=== PATIENT | female | born 2000 | race Caucasian/White ===

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

== ENCOUNTER → 2018-02-08 11:32 | Outpatient (CLI) | payer BC, SELFPAY ==
[2018-02-08 12:38] LABS: Hematocrit 33.6 % (37-47); Hemoglobin 11.4 g/dl (12.0-15.0); Mean Corp Hgb Conc 33.9 g/gl (32-36); Mean Corpuscular Hgb 31.1 pg (27.0-32.0); Mean Corpuscular Volume 91.6 fL (81-99); Mean Platelet Vol. 10.6 fl (6.2-12.0); Platelet Count 244 K/mm3 (150-450); RBC Distribution Width CV 12.1 % (11.6-14.6); RBC Distribution Width SD 39.2 fl (35.1-43.9); Red Blood Count 3.67 M/mm3 (4.2-5.4); White Blood Count 13.2 K/mm3 (4.4-11.0)
[2018-02-08 12:40] LABS: Scan Indicated on CBC? Y/N NO
[2018-02-08 12:46] LABS: Glucose Challenge Gest 1H 50g 82 mg/dL (70-140)
== END ==
PROVIDERS: Visit Provider Obstetrics & Gynecology
DX: Z34.83 Encounter for supervision of other normal pregnancy, third trimester (principal)
CPT/HCPCS: 82950; 85027

== ENCOUNTER 2018-03-20 16:25 | Outpatient (CLI) | payer BC, MEDICAID, SELFPAY ==
[2018-03-20 16:46] VITALS: BMI 29.7
[2018-03-20 17:26] LABS: ROM Internal Control Test YES-OK TO RESULT pt. (Internal QC); ROM Patient Test Negative (Negative)
[2018-03-20 17:55] LABS: Color, Urine Yellow (Yellow); Glucose, Dipstick Normal (Normal); Ketone-Dipstick Negative (Negative); Leukocyte Esterase-Dipstick 25 /ul (Negative); Nitrite-Dipstick Negative (Negative); Occult Blood-Urine Negative /ul (Negative); Protein-Dipstick 15 mg/dl (Negative); Red Blood Cells-Urine 0 SEEN /hpf (0-5); Squamous Epithelial Cells - UA 0 SEEN /hpf (5-10); Urine Bilirubin Dipstick Negative (Negative); Urine Clarity Clear (Clear); Urine Urobilinogen Normal (Normal); Urine pH 6.5 (5.0 - 8.0)
[2018-03-20 18:04] LABS: Bacteria 2+ /hpf (None Seen); Mucous, Urine RARE /hpf (<or=2+); White Blood Cells 0-5 SEEN /hpf (0-5)
--- NOTE | 2018-03-21 08:11 | OB.TRI.NOTE ---
History of Present Illness Date of Service: 03/20/18 Was patient seen by the physician?: No Reason For Visit: RULE OUT LABOR Date of Service: 03/20/18 Final LORRI: 04/27/18 Final LORRI Source: US <20 weeks Gestational age: 34 Weeks and 4 Days History of Present Illness: 17 yo AB1 female at 34 + wk presents with ? SROM. States N/V after car ride (normally has motion sickness) . States leaking fluid for a few days prior to this inc in fluid noted with N/V. No c/o UCs. No longer nauseated . Allergies No Known Allergies Allergy (Verified 11/18/17 17:04) Physical Exam Cervix Dilation (cm): 0 Effacement (%): 0 NST - FHR Rate Baby A Baseline: 120-130 avg variability Accels noted Variability:: Moderate Accelerations:: 15 x 15 Decelerations:: None NST Reactive:: Yes, Appropriate for gestational age FHR Category:: Category I Uterine Activity:: Uterine irritability with UCS q 2-4+ mins (not felt by patient as painful) Impression/Plan 17 yo [id number] female at 34 + wk EGA inc vaginal dischg FALSE LABOR SROM NEGATIVE NST reative Uterine irritability 2/2 relative dehydration. Home. RTO as scheduled for exam, PNV. UA, C and S sent.
--- NOTE | 2018-03-21 08:18 | OB.TRI.HP_ITS ---
History of Present Illness Date of Service: 03/20/18 Was patient seen by the physician?: No Reason For Visit: RULE OUT LABOR Date of Service: 03/20/18 Final LORRI: 04/27/18 Final LORRI Source: US <20 weeks Gestational age: 34 Weeks and 4 Days History of Present Illness: 17 yo AB1 female at 34 + wk presents with ? SROM. States N/V after car ride (normally has motion sickness) . States leaking fluid for a few days prior to this inc in fluid noted with N/V. No c/o UCs. No longer nauseated . Allergies No Known Allergies Allergy (Verified 11/18/17 17:04) Physical Exam Cervix Dilation (cm): 0 Effacement (%): 0 NST - FHR Rate Baby A Baseline: 120-130 avg variability Accels noted Variability:: Moderate Accelerations:: 15 x 15 Decelerations:: None NST Reactive:: Yes, Appropriate for gestational age FHR Category:: Category I Uterine Activity:: Uterine irritability with UCS q 2-4+ mins (not felt by patient as painful) Impression/Plan 17 yo [id number] female at 34 + wk EGA inc vaginal dischg FALSE LABOR SROM NEGATIVE NST reative Uterine irritability 2/2 relative dehydration. Home. RTO as scheduled for exam, PNV. UA, C and S sent.
== END 2018-03-20 18:40 | disposition home or self-care (01) ==
LOC: WPOUT 16:46 → WP 16:46
PROVIDERS: Visit Provider Obstetrics & Gynecology
DX: O47.03 False labor before 37 completed weeks of gestation, third trimester (principal); Z3A.34 34 weeks gestation of pregnancy; E86.0 Dehydration
CPT/HCPCS: 59025; 59050; 81001; 84112; 99218; G0378

== ENCOUNTER → 2018-04-04 15:30 | Outpatient (CLI) | payer BC, MEDICAID, SELFPAY ==
[2018-04-04 17:53] LABS: Group B Strep DNA By PCR POSITIVE (Negative); Probe Check PASS
== END ==
PROVIDERS: Visit Provider Obstetrics & Gynecology
DX: Z36.85 Encounter for antenatal screening for Streptococcus B (principal)
CPT/HCPCS: 87653

== ENCOUNTER 2018-04-28 13:44 | Inpatient (IN) | payer BC, MEDICAID, SELFPAY ==
[2018-04-28 13:52] VITALS: BMI 31.4
[2018-04-28 15:33] LABS: ROM Internal Control Test YES-OK TO RESULT pt. (Internal QC); ROM Patient Test Negative (Negative)
[2018-04-28] MEDS: Lactated Ringers 1,000 ML 50 ML IV ×2 (16:14→21:01)
[2018-04-28] MEDS: Oxytocin 30 units/NS 500 ml 30 UNITS/500 ML IV.SOLN IV (16:29)
[2018-04-28 16:31] LABS: Hematocrit 34.1 % (37-47); Hemoglobin 11.4 g/dl (12.0-15.0); Mean Corp Hgb Conc 33.4 g/gl (32-36); Mean Corpuscular Hgb 30.2 pg (27.0-32.0); Mean Corpuscular Volume 90.2 fL (81-99); Mean Platelet Vol. 10.7 fl (6.2-12.0); Platelet Count 220 K/mm3 (150-450); RBC Distribution Width CV 13.4 % (11.6-14.6); RBC Distribution Width SD 43.4 fl (35.1-43.9); Red Blood Count 3.78 M/mm3 (4.2-5.4); White Blood Count 13.1 K/mm3 (4.4-11.0)
[2018-04-28 16:34] LABS: Scan Indicated on CBC? Y/N NO
[2018-04-28 16:55] LABS: Color, Urine Yellow (Yellow); Glucose, Dipstick Normal (Normal); Ketone-Dipstick Negative (Negative); Leukocyte Esterase-Dipstick 25 /ul (Negative); Nitrite-Dipstick Negative (Negative); Occult Blood-Urine 250 /ul (Negative); Protein-Dipstick 30 mg/dl (Negative); Urine Bilirubin Dipstick Negative (Negative); Urine Clarity Sl. Cloudy (Clear); Urine Urobilinogen Normal (Normal)
[2018-04-28 17:16] LABS: Amphetamine Urine VISTA NEGATIVE (<1000 ng/mL); Barbiturate Urine VISTA NEGATIVE (< 200 ng/mL); Benzodiazepine Urine VISTA NEGATIVE (< 200 ng/mL); Cocaine Urine VISTA NEGATIVE (< 300 ng/mL); Ecstacy Urine VISTA NEGATIVE (< 500 ng/mL); Methadone Urine VISTA NEGATIVE (< 300 ng/mL); PCP Urine VISTA NEGATIVE (< 25 ng/mL); THC Urine VISTA NEGATIVE (< 50 ng/mL); Vista UDS pH Range 7
--- NOTE | 2018-04-28 20:30 | PCM.PN.BLA ---
Progress Note LABOR PROGRESS NOTE C/o painful contractions and requests epidural. Denies headache, vision changes. AVSS 134/ GEN - NAD, AAO x 3 FHR 135, moderate variability, + accelerations, no decelerations TOCO /-3-4/10 min SVE 3/80/-2 A/P: 17yo G1 @ 40 5/7wga with PROM, pitocin augmentation, Cat I FHR -Epidural per patient request -Continue pitocin as tolerated by mother and fetus -Maternal and statuses reassuring
[2018-04-28] MEDS: fentaNYL-bupivacaine (epidural) 100 ML BAG EPIDURAL (21:20)
[2018-04-29] MEDS: fentaNYL-bupivacaine (epidural) 100 ML BAG EPIDURAL (02:10)
[2018-04-29] MEDS: Lactated Ringers 1,000 ML 50 ML IV (08:06)
[2018-04-29] MEDS: Ondansetron 4 MG/2 ML Vial IV (08:06)
--- NOTE | 2018-04-29 08:33 | PN.OBGYN_ITS ---
Subjective: Comfortable with epidural. Objective: afeb VSS FHR tracing Cat 1. - Physical Exam General: Alert, Oriented x3, Cooperative, No apparent distress Abdomen: Non Tender, Gravid, Appropriate for Gestational Age Skin: No rashes Psych/Mental Status: Normal Affect Comment: FD 0 station Weight: 195 lb 1.745 oz Body Mass Index (BMI) 31.4 Intake and Output for Last 24 Hours 04/27/18 04/28/18 04/29/18 23:59 23:59 23:59 Intake Total 2108 / 2108 Output Total 1150 / 1150 Balance 958 / 958 Laboratory Tests Past 24 Hrs 04/28/18 04/28/18 04/28/18 14:55 16:00 16:00 WBC 13.1 H RBC 3.78 L Hgb 11.4 L Hct 34.1 L MCV 90.2 MCH 30.2 MCHC 33.4 RDW 13.4 RDW Differential 43.4 Plt Count 220 MPV 10.7 Urine Color Urine Clarity Urine pH Ur Specific [place] Urine Protein Urine Glucose (UA) Urine Ketones Urine Occult Blood Urine Nitrite Urine Bilirubin Urine Urobilinogen Ur Leukocyte Esterase Vag Amniotic Fld Detect Negative Urine Opiates Screen Urine Methadone Screen Ur Barbiturates Screen Ur Phencyclidine Scrn Ur Amphetamines Screen U Methamphetamin-MDMA U Benzodiazepines Scrn Urine Cocaine Screen U Cannabinoids Screen Ur Drug Screen Comment Blood Type A POSITIVE Antibody Screen NEGATIVE 04/28/18 04/28/18 16:30 16:30 WBC RBC Hgb Hct MCV MCH MCHC RDW RDW Differential Plt Count MPV Urine Color Yellow Urine Clarity Sl. Cloudy Urine pH 7.0 Ur Specific [place] 1.010 Urine Protein 30 H Urine Glucose (UA) Normal Urine Ketones Negative Urine Occult Blood 250 H Urine Nitrite Negative Urine Bilirubin Negative Urine Urobilinogen Normal Ur Leukocyte Esterase 25 H Vag Amniotic Fld Detect Urine Opiates Screen NEGATIVE Urine Methadone Screen NEGATIVE Ur Barbiturates Screen NEGATIVE Ur Phencyclidine Scrn NEGATIVE Ur Amphetamines Screen NEGATIVE U Methamphetamin-MDMA NEGATIVE U Benzodiazepines Scrn NEGATIVE Urine Cocaine Screen NEGATIVE U Cannabinoids Screen NEGATIVE Ur Drug Screen Comment Blood Type Antibody Screen Medical Necessity - Tobacco Use Smoking Status: Current every day smoker Assessment/Plan AROM performed with clear fluid noted.
[2018-04-29] MEDS: Oxytocin 30 units/NS 500 ml 30 UNITS/500 ML IV.SOLN 334 UNITS IV (09:51)
[2018-04-29] MEDS: Oxytocin 30 units/NS 500 ml 30 UNITS/500 ML IV.SOLN 167 UNITS IV (10:21)
[2018-04-29 16:05] VITALS: BP 126/76; PULSE 100; RESP 18; TEMP 36.7
[2018-04-29] MEDS: Ibuprofen 600 MG Tablet PO (16:09)
[2018-04-29] MEDS: Dibucaine 30 GM Tube 1 APPLIC TOPICAL (16:10)
--- NOTE | 2018-04-29 17:10 | DCINST_ITS ---
Discharge Diet: No Restrictions Discharge Activity: Return to Normal Activity, May Shower, May Take a Tub Bath May resume sexual activity in: 6 weeks Lifting Restrictions: 10-20 lb Call your doctor if you observe: Fever of 101 or Higher, Inability to urinate, Inability to have a bowel movement, Using more than one pad per hour, Shortness of breath, Chest pain, Calf discomfort, Uncontrolled pain, - - Severe headache Additional Instructions: If you experience any of the following, contact your healthcare provider. * Bleeding that soaks a pad every hour for 2 hours * Fever 100.4 or higher * Unrelieved incision or abdominal pain * Swelling, redness, discharge or bleeding from your incision or episiotomy site * Your incision begins to separate * Problems urinating (including inability to urinate or burning while urinating) . * Visual changes * Severe headache * Flu-like symptoms * Pain or redness in one of both of your breasts * Pain, warmth, tenderness or swelling in your legs, especially the calf area * Frequent nausea and vomiting * Symptoms of depression or anxiety If you experience any of the following, call 911 or go to the nearest Emergency Room. * Chest pain * Problems breathing * Seizure activity * Partial or complete paralysis of a body part, slurred speech, weakness or drooping of the face, or a sudden inability to walk or hold your balance Allergies/Adverse Reactions: Allergies No Known Allergies Allergy (Verified 11/18/17 17:04) Medications to take at Discharge Vits [Prenatabs FA] 1 tablet PO DAILY 03/20/18 Docusate Sodium [Colace] 100 mg PO BID PRN PRN #60 cap 04/29/18 Ibuprofen 600 mg PO TID PRN #30 tab 04/29/18 The following prescriptions were given: Docusate Sodium [Colace] 100 mg PO BID PRN PRN #60 cap PRN Reason: Constipation Ibuprofen 600 mg PO TID PRN #30 tab PRN Reason: Pain Please Follow Up With: Rosie Sheppard MD When: 6 weeks Primary Care Physician: Care Physician,No Primary [Primary Care Provider] - Test Results: Test results from this visit will be discussed in further detail at your follow- up appointment, if applicable.
--- NOTE | 2018-04-29 17:10 | PCM.OB.VAG ---
- Problem List (1) 40 weeks gestation of Status: Acute (2) (spontaneous vaginal delivery) Status: Acute Vaginal Delivery Maternal Presentation: Medically Indicated Induction Method of Induction: Pitocin Medical Reason for Induction: - - oligohydramnios Amniotic Membrane Rupture Type: Artificial Rupture of Membrane time: 71704/29/18 Amniotic Fluid Description: Clear Final LORRI: 04/27/18 Final LORRI Source: US <20 weeks Gestational age: 40 Weeks and 2 Days Date of Procedure: 04/29/18 Pre-Operative Diagnosis: 40 2/7wga, oligohydramnios, GBS positive Post-Operative Diagnosis: 40 2/7wga, oligohydramnios, GBS positive Surgery/ Procedure Performed: Spontaneous Vaginal Delivery Anesthesiologist: Prudence Mason Type of Anesthesia: Epidural Description of Procedure: Patient pushed to FD\+4 station on my arrival. She pushed to deliver a vigorous male infant in direct OA. The was placed on the maternal abdomen and further attended by nursery personnel. The cord was doubly clamped and cut after approximately 3 minutes of life. Cord gases were obtained. The placenta delivered spontaneously and appeared intact on inspection. A first degree vaginal laceration was repaired with 3-0 Vicryl Rapide. Sponge counts correct x 2. Presentation: Vertex Placental Delivery Description: Spontaneous Placenta Disposition: [facility] Cord Vessel Description: 3 Vessels Nuchal Cord Compression: Without compression Cord Gases drawn per routine: ABG, VBG Cord Entanglement: None Estimated Blood Loss: 350 A gender: Male (1 minute): 9 (5 minute): 10 Episiotomy Description: None Laceration: Midline, Vaginal Extension/lac, 1st degree Medications given after delivery: IV Pitocin Complications: None
[2018-04-29 19:40] VITALS: BP 123/62; PULSE 88; RESP 17; TEMP 36.5; O2SAT 98
[2018-04-29 23:35] VITALS: BP 128/73; PULSE 88; RESP 18; TEMP 36.6
[2018-04-30 03:40] VITALS: BP 129/77; PULSE 89; RESP 18; TEMP 36.4
[2018-04-30] MEDS: Ibuprofen 600 MG Tablet PO ×3 (04:05→17:15)
[2018-04-30 08:06] VITALS: BP 129/73; PULSE 80; RESP 20; TEMP 36.6
--- NOTE | 2018-04-30 08:50 | PCM.PN.OB ---
Patient Problems: Active and Suspected Problems 40 weeks gestation of (Acute) (spontaneous vaginal delivery) (Acute) Subjective: Doing well. Some vulavar soreness. Bleeding light. Breast feeding. Objective: Afeb VSS - Physical Exam Abdomen: Soft, Non Tender, Non-Distended, - - Fundus nontender Extremities: No edema Skin: No rashes Neurological: Neuro grossly intact Psych/Mental Status: Normal Affect Comment: Lochia appropriate Vital Signs Temp Pulse Resp BP Pulse Ox 97.8 F 80 20 H 129/73 H 98 04/30/18 08:06 04/30/18 08:06 04/30/18 08:06 04/30/18 08:06 04/29/18 19:40 Oxygen Delivery Method Room Air Weight: 195 lb 1.745 oz Body Mass Index (BMI) 31.4 Intake and Output for Last 24 Hours 04/28/18 04/29/18 04/30/18 23:59 23:59 23:59 Intake Total 2798 / 2798 Output Total 2550 / 2550 Balance 248 / 248 Medical Necessity - Tobacco Use Smoking Status: Current every day smoker Assessment/Plan All Active Problems 40 weeks gestation of (Acute) (spontaneous vaginal delivery) (Acute) Doing well on PP day#1. Continue routine PP care.
[2018-04-30] MEDS: Prenatal Vits Tablet 1 TABLET PO (09:47)
[2018-04-30 14:25] VITALS: BP 135/70; PULSE 94; RESP 22; TEMP 36.7
--- NOTE | 2018-04-30 20:18 | NURSING ---
1950-pt having some burning with voiding, enc to use maribell bottle and spray perineum while voiding. pt voiced that this does help.
[2018-05-01] MEDS: Ibuprofen 600 MG Tablet PO (00:59)
[2018-05-01 01:02] VITALS: BP 138/93; PULSE 77; RESP 16; TEMP 36.7
--- NOTE | 2018-05-01 07:41 | PCM.PN.OB ---
Patient Problems: Active and Suspected Problems 40 weeks gestation of (Acute) (spontaneous vaginal delivery) (Acute) Subjective: No specific complaints. Breast feeding. Bleeding light. Objective: Afeb VSS - Physical Exam General: Alert, Oriented x3, Cooperative, No apparent distress Lungs: Clear to auscultation, Normal air movement Cardiovascular: Regular rate, Regular Rhythm Abdomen: Soft, Non Tender, Non-Distended, - - Fundus nontender Extremities: No edema Skin: No rashes Neurological: Neuro grossly intact Psych/Mental Status: Normal Affect Comment: Lochia light Vital Signs Temp Pulse Resp BP Pulse Ox 98.1 F 77 16 138/93 H 98 05/01/18 01:02 05/01/18 01:02 05/01/18 01:02 05/01/18 01:02 04/29/18 19:40 Oxygen Delivery Method Room Air Weight: 195 lb 1.745 oz Body Mass Index (BMI) 31.4 Intake and Output for Last 24 Hours 04/29/18 04/30/18 05/01/18 23:59 23:59 23:59 Intake Total 2798 / 2798 Output Total 2550 / 2550 Balance 248 / 248 Medical Necessity - Tobacco Use Smoking Status: Current every day smoker Assessment/Plan All Active Problems 40 weeks gestation of (Acute) (spontaneous vaginal delivery) (Acute) Doing well on PP day#2. Cleared for discharge home today. Home going instructions and warnings given.
--- NOTE | 2018-05-01 07:43 | PCM.DC.SUM ---
Discharge Date and Diagnosis - Problem List Patient Problems: Active and Suspected Problems 40 weeks gestation of (Acute) (spontaneous vaginal delivery) (Acute) Date of Admission: 04/28/18 Date of Discharge: 05/01/18 - Primary Discharge Diagnosis Active and Suspected Problems 40 weeks gestation of (Acute) (spontaneous vaginal delivery) (Acute) Hospital Course and Treatment Operations: None Procedures: - - Summary of Care Provided: The patient is a 17 year old F [admitted in active labor. Progressed to FD then pushed to deliver a live without complication. Post course unremarkable. Discharged home on pp day#2.] Discharge Diet: No Restrictions Discharge Activity: Return to Normal Activity, May Shower, May Take a Tub Bath May resume sexual activity in: 6 weeks Call your doctor if you observe: Fever of 101 or Higher, Inability to urinate, Inability to have a bowel movement, Using more than one pad per hour, Shortness of breath, Chest pain, Calf discomfort, Uncontrolled pain, - - Severe headache Home Medications: Medications to take at Discharge Vits [Prenatabs FA] 1 tablet PO DAILY 03/20/18 Docusate Sodium [Colace] 100 mg PO BID PRN PRN #60 cap 04/29/18 Ibuprofen 600 mg PO TID PRN #30 tab 04/29/18 Ibuprofen 600 mg PO 4X/DAY #30 tab 05/01/18 Following Prescrptions Were Given to Patient: Docusate Sodium [Colace] 100 mg PO BID PRN PRN #60 cap PRN Reason: Constipation Ibuprofen 600 mg PO TID PRN #30 tab PRN Reason: Pain Ibuprofen 600 mg PO 4X/DAY #30 tab Primary Care Physician: Care Physician,No Primary [Primary Care Provider] - Please Follow Up With: Rosie Sheppard MD When: 6 weeks Disposition: Home Minutes spent on discharge:: 15 Patient Condition:: Good Medical Necessity - Tobacco Use Smoking Status: Current every day smoker Meaningful Use Info Meaningful Use Diagnoses (Choose all that apply): None applicable
[2018-05-01 08:29] VITALS: BP 130/81; PULSE 86; RESP 16; TEMP 36.4; O2SAT 99
--- NOTE | 2018-05-07 13:30 | NURSING ---
follow up phone call done, sig other answered phone and stated patient is doing well. denies needs at this tme
== END 2018-05-01 09:10 | disposition home or self-care (01) | DRG 373 ==
PROVIDERS: Admitting Provider Obstetrics & Gynecology; Visit Provider Obstetrics & Gynecology
DX: O41.03X0 Oligohydramnios, third trimester, not applicable or unspecified (principal); O70.0 First degree perineal laceration during delivery; O99.824 Streptococcus B carrier state complicating childbirth; Z3A.40 40 weeks gestation of pregnancy; Z37.0 Single live birth; O99.334 Smoking (tobacco) complicating childbirth; F17.200 Nicotine dependence, unspecified, uncomplicated
CPT/HCPCS: 59050; 80307; 81002; 84112; 85027; 86850; 86900; 99218; J7120; G0378; J2405

== ENCOUNTER → 2018-06-21 16:11 | Outpatient (CLI) | payer BC, MEDICAID, SELFPAY ==
[2018-06-21 20:35] LABS: Chlamydia Trachomatis by PCR Negative (Negative); Neisserai gonorrhoeae by PCR Negative (Negative); Probe Check PASS; Sample Adequacy Control PASS; Specimen Processing Control PASS
== END ==
PROVIDERS: Visit Provider Obstetrics & Gynecology
DX: Z11.3 Encounter for screening for infections with a predominantly sexual mode of transmission (principal)
CPT/HCPCS: 87491; 87591

== ENCOUNTER → 2019-10-25 | Outpatient (CLI) | payer OTHER, SELFPAY | END | disposition home or self-care (01) | PROVIDERS: Referring Provider Obstetrics & Gynecology; Visit Provider Obstetrics & Gynecology | DX: Z12.4 Encounter for screening for malignant neoplasm of cervix (principal) ==

== ENCOUNTER → 2021-06-18 16:10 | Outpatient (CLI) | payer MEDICAID, SELFPAY ==
[2021-06-18 17:17] LABS: Absolute Lymphocyte Count 1.87 X10^3/uL (0.83-4.51); Absolute Neutrophil Count 7.3 X10^3/uL (2.0-7.7); Basophil# 0.03 X10^3/uL; Basophil% 0.3 % (0-1); Eosinophil# 0.37 X10^3/uL; Eosinophils% 3.6 % (0-5); Hematocrit 39.8 % (37-47); Lymphocyte # 1.87 X10^3/ul (0.83-4.51); Lymphocyte % 18.1 % (19-41); Mean Corp Hgb Conc 32.7 g/dL (32-36); Mean Corpuscular Hgb 29.5 pg (27.0-32.0); Mean Corpuscular Volume 90.2 fL (81-99); Mean Platelet Vol. 9.9 fl (6.2-12.0); Monocyte# 0.74 X10^3/uL; Monocyte% 7.2 % (0-10); NRBC Flagged by Analyzer 0 % (0-5); Neutrophil # 7.26 X10^3/uL (2.7-7.7); Neutrophil % 70.4 % (47-70); Platelet Count 268 K/mm3 (150-450); RBC Distribution Width CV 11.8 % (11.6-14.6); RBC Distribution Width SD 38.7 fl (35.1-43.9); Red Blood Count 4.41 M/mm3 (4.2-5.4); White Blood Count 10.3 K/mm3 (4.4-11.0)
[2021-06-18 17:18] LABS: Color, Urine Yellow (Yellow); Glucose, Dipstick Normal (Normal); Ketone-Dipstick Negative (Negative); Leukocyte Esterase-Dipstick Negative /ul (Negative); Nitrite-Dipstick Negative (Negative); Occult Blood-Urine Negative /ul (Negative); Protein-Dipstick Negative (Negative); Specific Gravity, Urine 1.015 (1.002-1.030); Urine Bilirubin Dipstick Negative (Negative); Urine Clarity Clear (Clear); Urine Urobilinogen Normal (Normal); Urine pH 6.5 (5.0 - 8.0)
[2021-06-18 17:39] LABS: Amphetamine Urine VISTA NEGATIVE (<1000 ng/mL); Barbiturate Urine VISTA NEGATIVE (< 200 ng/mL); Benzodiazepine Urine VISTA NEGATIVE (< 200 ng/mL); Cocaine Urine VISTA NEGATIVE (< 300 ng/mL); Ecstacy Urine VISTA NEGATIVE (< 500 ng/mL); Methadone Urine VISTA NEGATIVE (< 300 ng/mL); PCP Urine VISTA NEGATIVE (< 25 ng/mL); THC Urine VISTA POSITIVE (< 50 ng/mL); Vista UDS pH Range 6
[2021-06-18 17:59] LABS: Thyroid Stim Hormone (TSH) 0.37 uIU/mL (0.358-3.74)
[2021-06-19 11:30] LABS: HIV - WCH Non-Reactive (Nonreactive); Hepatitis B Surface Antigen Non-Reactive (Nonreactive); Hepatitis C Antibody Non-Reactive (Nonreactive); Rubella IgG Reactive (Nonreactive); Syphilis Antibodies Non-reactive
[2021-06-21 03:08] LABS: Chlamydia By Nucleic Acid AMP Negative (Negative)
[2021-06-21 09:02] LABS: Gonococcus By Nucleic Acid AMP Negative (Negative)
== END ==
PROVIDERS: Visit Provider Obstetrics & Gynecology
DX: Z34.81 Encounter for supervision of other normal pregnancy, first trimester (principal); Z11.3 Encounter for screening for infections with a predominantly sexual mode of transmission
CPT/HCPCS: 36415; 80307; 81002; 84443; 85025; 86703; 86762; 86780; 86803; 87077; 87086; 87088; 87186; 87340; 87491; 87591

== ENCOUNTER 2021-11-17 14:13 | Outpatient (CLI) | payer MEDICAID, SELFPAY ==
[2021-11-17 15:10] LABS: Hematocrit 33.5 % (37-47); Hemoglobin 11.5 g/dL (12.0-15.0); Mean Corp Hgb Conc 34.3 g/dL (32-36); Mean Corpuscular Hgb 31.3 pg (27.0-32.0); Mean Corpuscular Volume 91.3 fL (81-99); Mean Platelet Vol. 11.2 fl (6.2-12.0); Platelet Count 220 K/mm3 (150-450); RBC Distribution Width CV 11.9 % (11.6-14.6); RBC Distribution Width SD 39.8 fl (35.1-43.9); Red Blood Count 3.67 M/mm3 (4.2-5.4); White Blood Count 13.7 K/mm3 (4.4-11.0)
[2021-11-17 16:12] LABS: Glucose Challenge Gest 1H 50g 135 mg/dL (70-140)
== END 2021-11-17 23:59 | disposition home or self-care (01) ==
LOC: WOBLAB 14:14
PROVIDERS: Visit Provider Obstetrics & Gynecology
DX: Z34.83 Encounter for supervision of other normal pregnancy, third trimester (principal)
CPT/HCPCS: 36415; 82950; 85027

== ENCOUNTER 2022-01-20 14:00 | Outpatient (CLI) | payer MEDICAID, SELFPAY ==
[2022-01-20 14:09] VITALS: BP 125/71; PULSE 106
[2022-01-20 14:10] VITALS: TEMP 37.1
[2022-01-20 14:14] VITALS: BMI 31.8
--- NOTE | 2022-01-20 17:36 | OB.TRI.NOTE ---
HPI - General HPI Narrative GREYSON JO, is a 21 F who presents with c/o decreased movement. Maternal Data Information LORRI Calculator Estimated Delivery Date Method Current WG Current Estimate 01/27/22 LMP (Certain) 39w 0d PFSH PFSH Home Medications vit,[id number] [Prenatabs FA] 1 tab PO DAILY 03/20/18 [History Last Taken 04/27/18 20:00] Allergy/AdvReac Type Severity Reaction Status Date / Time No Known Allergies Allergy Verified 01/20/22 14:06 Social History Smoking Status: Current every day smoker NST FHR Rate Baby A Baseline: 140 Variability:: Moderate Accelerations:: 15 x 15 Decelerations:: None NST Reactive:: Yes FHR Category:: Category I Uterine Activity:: 0-1/10 min Assessment & Plan (1) Decreased movement: QUALIFIERS: Fetus number: single or unspecified fetus Trimester: third trimester Qualified Code(s): O36.8130 - Decreased movements, third trimester, not applicable or unspecified (2) 39 weeks gestation of : PLAN: reactive NST, Cat I Pt noted normal movement on arrival d/c home f/u in office tomorrow as scheduled
== END 2022-01-20 15:25 | disposition home or self-care (01) ==
LOC: WPOUT 14:05 → WP 14:05
PROVIDERS: Referring Provider Obstetrics & Gynecology; Visit Provider Obstetrics & Gynecology
DX: O36.8130 Decreased fetal movements, third trimester, not applicable or unspecified (principal); O99.333 Smoking (tobacco) complicating pregnancy, third trimester; Z3A.39 39 weeks gestation of pregnancy; F17.200 Nicotine dependence, unspecified, uncomplicated
CPT/HCPCS: G0378 ×2; 59050 ×2; 59025; 99218

== ENCOUNTER 2022-01-22 11:55 | Inpatient (IN) | payer OTHER, MEDICAID, SELFPAY ==
[2022-01-22] VITALS (15 sets, daily range): BP systolic 120–143; BP diastolic 58–79; PULSE 74–108; RESP 18; TEMP 36.2–36.7; O2SAT 99; BMI 32.1
[2022-01-22 11:53] LABS: ROM Internal Control Test YES-OK TO RESULT pt. (Internal QC)
[2022-01-22 11:55] LABS: ROM Patient Test POSITIVE (Negative)
[2022-01-22] MEDS: Lactated Ringers 1,000 ML 50 ML IV (12:55)
[2022-01-22 13:12] LABS: Absolute Neutrophil Count 13.4 X10^3/uL (2.0-7.7); Basophil# 0.04 X10^3/uL; Basophil% 0.2 % (0-1); Eosinophil# 0.17 X10^3/uL; Hematocrit 36.9 % (37-47); Hemoglobin 12.5 g/dL (12.0-15.0); Lymphocyte % 12.5 % (19-41); Mean Corp Hgb Conc 33.9 g/dL (32-36); Mean Corpuscular Hgb 30.8 pg (27.0-32.0); Mean Corpuscular Volume 90.9 fL (81-99); Mean Platelet Vol. 10.7 fl (6.2-12.0); Monocyte# 1.02 X10^3/uL; Monocyte% 6.1 % (0-10); NRBC Flagged by Analyzer 0 % (0-5); Neutrophil # 13.36 X10^3/uL (2.7-7.7); Neutrophil % 79.4 % (47-70); Platelet Count 245 K/mm3 (150-450); RBC Distribution Width CV 12.7 % (11.6-14.6); RBC Distribution Width SD 41.6 fl (35.1-43.9); Red Blood Count 4.06 M/mm3 (4.2-5.4); White Blood Count 16.8 K/mm3 (4.4-11.0)
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
[2022-01-22 13:58] LABS: Amphetamine Urine VISTA NEGATIVE (<1000 ng/mL); Barbiturate Urine VISTA NEGATIVE (< 200 ng/mL); Benzodiazepine Urine VISTA NEGATIVE (< 200 ng/mL); Cocaine Urine VISTA NEGATIVE (< 300 ng/mL); Ecstacy Urine VISTA NEGATIVE (< 500 ng/mL); Methadone Urine VISTA NEGATIVE (< 300 ng/mL); PCP Urine VISTA NEGATIVE (< 25 ng/mL); THC Urine VISTA POSITIVE (< 50 ng/mL); Vista UDS pH Range 7
[2022-01-22] MEDS: Oxytocin 30 units/NS 500 ml 30 UNITS/500 ML IV.SOLN 334 UNITS IV (15:51)
--- NOTE | 2022-01-22 16:10 | EX.PCM.OBRPT ---
Assessment & Plan (1) 39 weeks gestation of : (2) (spontaneous vaginal delivery): Maternal Data Information LORRI Calculator Estimated Delivery Date Method Current WG Current Estimate 01/27/22 LMP (Certain) 39w 2d Vaginal Delivery Maternal Presentation Maternal Presentation: Active Labor and Spontaneous Rupture of Membranes Operative Information Date of Procedure: 01/22/22 Pre-Operative Diagnosis: 1. 39 2/7 weeks gestation 2. Labor Post-Operative Diagnosis: 1. 39 2/7 weeks gestation 2. Labor Surgery / Procedure Performed: Spontaneous Vaginal Delivery Type of Anesthesia: None Estimated Blood Loss: 350 ml Time of Delivery: 03:46 Findings Description of Procedure: Patient was FD/+3 station. She pushed to deliver a male in OA. Infant was placed on the maternal abdomen and further attended by nursery personnel. The cord was doubly clamped and cut at 3 minutes of life. The placenta delivered spontaneously and appeared intact on inspection with 3 VC. The uterus was initially boggy, but firmed with fundal massage and IV pitocin. A first degree vaginal laceration with left labial extension was repaired with 3-0 Vicryl Rapide following lidocaine 1% administration locally with good hemostasis. Sponge and needle counts correct x 2. Presentation: Vertex Amniotic Membrane Rupture Type: Artificial Amniotic Fluid Description: Clear Cord Vessel Description: 3 Vessels Cord Entanglement: None A Gender: Male (1 minute): 8 (5 minute): 9 Delayed Cord Clamping: Yes Post Vaginal Delivery Medications Given After Delivery: IV Pitocin Episiotomy Description: None Laceration: Vaginal Extension/lac and 1st degree
[2022-01-22] MEDS: Methylergonovine 0.2 MG/ML Ampul IM (16:46)
[2022-01-23 00:28] VITALS: BP 107/56; PULSE 82; RESP 18; TEMP 36.8
[2022-01-23 05:12] VITALS: BP 94/64; PULSE 100; RESP 18; TEMP 36.3
[2022-01-23 08:00] VITALS: BP 110/66; PULSE 87; RESP 14; TEMP 36.4
--- NOTE | 2022-01-23 09:11 | PCM.PN.OB ---
Subjective Subjective No issues overnight. She got some sleep the slept well. She did wake him up to nurse him a few times. Nursing is going well. She has some cramping which is tolerable. Denies heavy lochia. No complaints this morning. Objective Data Objective Data Vital Signs: Vital Signs Temp Pulse Resp BP Pulse Ox 97.6 F L 87 14 110/66 99 01/23/22 08:00 01/23/22 08:00 01/23/22 08:00 01/23/22 08:00 01/22/22 14:31 Oxygen Delivery Method Room Air Weight: 90.4 kg Body Mass Index (BMI) 32.1 Intake & Output: Intake and Output for Last 24 Hours 01/21/22 01/22/22 01/23/22 23:59 23:59 23:59 Intake Total 690.00 / 690.00 Output Total 300 / 300 Balance 390.00 / 390.00 Lab / Micro Data Result Diagrams: 01/22/22 12:55 Labs: Laboratory Results - last 24 hr 01/22/22 11:25: Vag Amniotic Fld Detect POSITIVE H 01/22/22 12:55: WBC 16.8 H, RBC 4.06 L, Hgb 12.5, Hct 36.9 L, MCV 90.9, MCH 30.8, MCHC 33.9, RDW Std Deviation 41.6, RDW Coeff of Leonora 12.7, Plt Count 245, MPV 10.7, Immature Gran % (Auto) 0.800, Neut % (Auto) 79.4 H, Lymph % (Auto) 12.5 L, [place] % (Auto) 6.1, Eos % (Auto) 1.0, Baso % (Auto) 0.2, Absolute Neuts (auto) 13.4 H, Absolute Lymphs (auto) 2.10, Nucleated RBC % 0 01/22/22 12:55: Blood Type A POSITIVE, Antibody Screen NEGATIVE 01/22/22 13:30: Urine Opiates Screen NEGATIVE, Urine Methadone Screen NEGATIVE, Ur Barbiturates Screen NEGATIVE, Ur Phencyclidine Scrn NEGATIVE, Ur Amphetamines Screen NEGATIVE, MDMA (Ecstasy) Screen NEGATIVE, U Benzodiazepines Scrn NEGATIVE, Urine Cocaine Screen NEGATIVE, U Cannabinoids Screen POSITIVE H, Ur Drug Screen Comment Micro: Microbiology 01/22/22 12:09 Nasal Secretion SARS-CoV-2 Antigen (Rapid) - Final Physical Exam Const alert, oriented x3 and no apparent distress Resp normal respiratory effort and normal air movement Cardio regular rate, regular rhythm, S1 normal heart sound and S2 normal heart sound Uterus Palpation: uterus fundus firm and other OB fundus nontender Extremity no calf tenderness Neuro oriented x3 Assessment & Plan (1) (spontaneous vaginal delivery): COMMENT: Male infant, [id number], Babar PLAN: A positive Routine care Case management consultation Will d/c home today pending discharge (2) 39 weeks gestation of :
[2022-01-23] MEDS: Prenatal Vits Tablet 1 TABLET PO (11:01)
[2022-01-23 13:34] VITALS: BP 121/68; PULSE 85; RESP 14; TEMP 36.2
[2022-01-23 17:29] VITALS: BP 114/64; PULSE 102; RESP 16
[2022-01-23 19:30] VITALS: BP 112/72; PULSE 92; RESP 14; TEMP 36.5
[2022-01-24 02:50] VITALS: BP 124/75; PULSE 70; RESP 14; TEMP 36.6
--- NOTE | 2022-01-24 08:16 | PCM.PN.OB ---
Subjective Subjective Passed a golf ball sized clot x 1 yesterday. Denies further bleeding with light lochia this morning. Doing well. clusterfed overnight. Denies painfulness. Objective Data Objective Data Vital Signs: Vital Signs Temp Pulse Resp BP Pulse Ox 98 F 70 14 124/75 H 99 01/24/22 02:50 01/24/22 02:50 01/24/22 02:50 01/24/22 02:50 01/22/22 14:31 Oxygen Delivery Method Room Air Weight: 90.4 kg Body Mass Index (BMI) 32.1 Intake & Output: Intake and Output for Last 24 Hours 01/22/22 01/23/22 01/24/22 23:59 23:59 23:59 Intake Total 690.00 / 690.00 Output Total 300 / 300 Balance 390.00 / 390.00 Lab / Micro Data Result Diagrams: 01/22/22 12:55 Micro: Microbiology 01/22/22 12:09 Nasal Secretion SARS-CoV-2 Antigen (Rapid) - Final Physical Exam Const alert, oriented x3 and no apparent distress Resp normal respiratory effort and normal air movement Cardio regular rate, regular rhythm, S1 normal heart sound and S2 normal heart sound Uterus Palpation: uterus fundus firm and other OB fundus nontender Extremity no calf tenderness Neuro oriented x3 Assessment & Plan (1) (spontaneous vaginal delivery): COMMENT: Male infant, [id number], Babar PLAN: Rh positive, Rubella immune, HIV neg, HBsAg neg, HCV Routine care D/C home today
[2022-01-24 08:36] VITALS: BP 120/74; PULSE 81; RESP 16; TEMP 36.2
[2022-01-24 09:03] VITALS: RESP 16
--- NOTE | 2022-01-28 14:44 | NURSING ---
No answer and no voicemail on follow up call.
== END 2022-01-24 09:10 | disposition home or self-care (01) | DRG 560 ==
LOC: WPOUT 12:01 → WP 12:01
PROVIDERS: Obstetrics & Gynecology; Admitting Provider Obstetrics & Gynecology; Visit Provider Obstetrics & Gynecology
DX: O70.0 First degree perineal laceration during delivery (principal); Z37.0 Single live birth; F17.210 Nicotine dependence, cigarettes, uncomplicated; O99.334 Smoking (tobacco) complicating childbirth; Z3A.39 39 weeks gestation of pregnancy
CPT/HCPCS: 59025; 59050; 80307; 84112; 85025; 86850; 86900; 86901; 87426; 99218; 99406; J7120; G0378